=== PATIENT | female | born 1990 | race Two or more races ===

== ENCOUNTER 2020-11-11 17:07 | Emergency (ER) | payer SELFPAY ==
[~2020-11-11] VITALS: Ht 154.9 cm; Wt 82.0 kg
[2020-11-11 17:44] LABS: BILIRUBIN,URINE NEGATIVE (NEG); CLARITY,URINE CLEAR; COLOR,URINE YELLOW; NITRITE,URINE NEGATIVE (NEG); PH,URINE 5.5 (<5.0-8.0); PROTEIN,URINE NEGATIVE (NEG-TRACE); UROBILINOGEN,URINE 0.2 mg/dL (0.2 mg/dL)
[2020-11-11 17:50] LABS: RBC,URINE 0 /HPF (0-2)
[2020-11-11 17:51] LABS: BACTERIA,URINE FEW /HPF (0-FEW); WBC,URINE OCC /HPF (0-4)
[2020-11-11] MEDS ORDERED: IBUP-1007 PO (18:03)
[2020-11-11] MEDS ORDERED: METH4TAB2 PO (18:03)
[2020-11-11] MEDS ORDERED: CYCL5TAB PO (18:03)
--- NOTE | 2020-11-11 18:03 | PHYS DOC ---
Past Medical History Past Medical History: No Pertinent History Past Surgical History: Hysterectomy Smoking Status: Never Smoker Alcohol Use: None Drug Use: None General Adult EDM: Chief Complaint: LOWER BACK PAIN OR INJURY HPI: HPI: Patient is a 30 year old female who presents with right lower back pain with sharp shooting pains down the back of her right leg for the last 2 weeks. States she is been taking Tylenol at home is not getting better. She states that she does not remember injuring her back. Patient states it hurts with movement or sitting a certain way. She denies any numbness or tingling, focal weakness, loss of bowel bladder, abdominal pain, urinary symptoms, nausea, v omiting, diarrhea, constipation, chest pain, shortness of air, dizziness or headache. She denies any kind of fever or body aches or chills. She has no known past medical history. Review of Systems: Review of Systems: Constitutional: Denies fever or chills. [] Eyes: Denies change in visual acuity. [] HENT: Denies nasal congestion or sore throat. [] Respiratory: Denies cough or shortness of breath. [] Cardiovascular: Denies chest pain or edema. [] GI: Denies abdominal pain, nausea, vomiting, bloody stools or diarrhea. [] : Denies dysuria. [] Musculoskeletal: +Right back pain with sharp shooting pain down the back of the leg or denies joint pain. [] Integument: Denies rash. [] Neurologic: Denies headache, focal weakness or sensory changes. [] Endocrine: Denies polyuria or polydipsia. [] Lymphatic: Denies swollen glands. [] Psychiatric: Denies depression or anxiety. [] Heart Score: C/O Chest Pain: No Risk Factors: Risk Factors: DM, Current or recent (<one month) smoker, HTN, HLP, family history of CAD, obesity. Risk Scores: Score 0 - 3: 2.5% MACE over next 6 weeks - Discharge Home Score 4 - 6: 20.3% MACE over next 6 weeks - Admit for Clinical Observation Score 7 - 10: 72.7% MACE over next 6 weeks - Early Invasive Strategies Allergies: Allergies: Allergies Coded Allergies Type Severity Reaction Last Updated Verified No Known Drug Allergies 02/13/14 No Physical Exam: PE: Constitutional: Well developed, well nourished, no acute distress, non-toxic appearance. [] HENT: Normocephalic, atraumatic, bilateral external ears normal, oropharynx moist, no oral exudates, nose normal. [] Eyes: PERRLA, EOMI, conjunctiva normal, no discharge. [] Neck: Normal range of motion, no tenderness, supple, no stridor. [] Cardiovascular:Heart rate regular rhythm, no murmur [] Lungs & Thorax: Bilateral breath sounds clear to auscultation [] Abdomen: Bowel sounds normal, soft, no tenderness, no masses, no pulsatile masses. [] Skin: Warm, dry, no erythema, no rash. [] Back: No tenderness, no CVA tenderness. [] Extremities: No tenderness, no cyanosis, no clubbing, ROM intact, no edema. [] Neurologic: Alert and oriented X 3, normal motor function, normal sensory function, no focal deficits noted. [] Psychologic: Affect normal, judgement normal, mood normal. Normal physical exam [] Current Patient Data: Labs: Laboratory Tests Test 11/11/20 17:30 Urine Collection Type Unknown Urine Color Yellow Urine Clarity Clear Urine pH 5.5 (<5.0-8.0) Urine Specific [place] <=1.005 (1.000-1.030) Urine Protein Negative mg/dL (NEG-TRACE) Urine Glucose (UA) Negative mg/dL (NEG) Urine Ketones (Stick) Negative mg/dL (NEG) Urine Blood Negative (NEG) Urine Nitrite Negative (NEG) Urine Bilirubin Negative (NEG) Urine Urobilinogen Dipstick 0.2 mg/dL (0.2 mg/dL) Urine Leukocyte Esterase Negative (NEG) Urine RBC 0 /HPF (0-2) Urine WBC Occ /HPF (0-4) Urine Squamous Epithelial Cells Few /LPF Urine Bacteria Few /HPF (0-FEW) Vital Signs: Vital Signs Date Time Temp Pulse Resp B/P (MAP) Pulse Ox O2 Delivery O2 Flow Rate FiO2 11/11/20 17:15 98.5 88 16 138/73 (94) 98 Room Air 98.5 EKG: EKG: [] Radiology/Procedures: Radiology/Procedures: [] Course & Med Decision Making: Course & Med Decision Making Pertinent Labs and Imaging studies reviewed. (See chart for details) Ambulatory with a steady gait. Speaks in full clear sentences. Skin pink warm and dry. Vital signs within normal limits. Cap refill less than 2 seconds. No focal bony spinal tenderness. No saddle paresthesias. Urinalysis showed no acute findings and there is no blood in her urine. Patient will be sent home to follow-up with a primary care provider and given medrol dose pack, Ibuprofen, and muscle relaxer. [] Dragon Disclaimer: Dragon Disclaimer: This electronic medical record was generated, in whole or in part, using a voice recognition dictation system. Departure Departure Impression: Primary Impression: Lower back pain Qualified Codes: M54.41 - Lumbago with sciatica, right side Additional Impression: Sciatica Qualified Codes: M54.31 - Sciatica, right side Disposition: 01 DC HOME SELF CARE/HOMELESS Condition: STABLE Referrals: NON,STAFF (PCP) Patient Instructions: Back Pain, Adult, Sciatica with Rehab-SportsMed Additional Instructions: Follow-up with your primary care provider soon as possible. Use nhni-vop-liezcle lidocaine patches. If you lose your bowel or bladder or have focal weaknesses Return the emergency room. Take medications as prescribed and with food. Remember some these medications will make you sleepy. Do not drive or drink alcohol with the medication. Scripts Ibuprofen (IBUPROFEN) 600 Mg Tablet 600 MG PO PRN Q6HRS PRN for INFLAMMATION, #26 TAB Prov: WERNER MANRIQUEZ APRN 11/11/20 Cyclobenzaprine Hcl (CYCLOBENZAPRINE HCL) 5 Mg Tablet 1 TAB PO TID, #21 TAB Prov: WERNER MANRIQUEZ PHOTORADIO OPERATOR 11/11/20 Methylprednisolone (MEDROL) 4 Mg Tab.ds.pk 1 PKG PO UD, #1 PKG Prov: WERNER MANRIQUEZ PHOTORADIO OPERATOR 11/11/20 WERNER MANRIQUEZ PHOTORADIO OPERATOR Nov 11, 2020 18:03
[2020-11-11 18:05] VITALS: BP 129/71
== END 2020-11-11 18:15 | disposition home or self-care (01) ==
LOC: ER 17:07
DX: M54.41 Lumbago with sciatica, right side (principal); Z90.710 Acquired absence of both cervix and uterus
CPT/HCPCS: 81001; 99283

== ENCOUNTER 2021-04-02 12:45 | Emergency (ER) | payer SELFPAY ==
[~2021-04-02 12:45] MED LIST: CYCL5TAB PO; IBUP-1007 PO; METH4TAB2 PO
== END 2021-04-02 15:30 | disposition left against medical advice (07) ==
LOC: ER 12:45
DX: Z53.21 Procedure and treatment not carried out due to patient leaving prior to being seen by health care provider (principal)